=== PATIENT | male | born 1960 | race Caucasian/White ===

== ENCOUNTER 2017-10-31 09:21 | Outpatient (CLI) | payer MEDICAID ==
[2017-10-31 09:43] LABS: BASOPHILS % (AUTO) 0.7 %; EOSINOPHILS # (AUTO) 0.3 10^3/uL (0.0-0.7); EOSINOPHILS % (AUTO) 4.3 %; HGB - HEMOGLOBIN 13.1 g/dL (14.0-18.0); LYMPHOCYTES # (AUTO) 1.5 10^3/uL (1.5-3.5); LYMPHOCYTES % (AUTO) 22.2 %; MEAN CORPUSCULAR HEMOGLOBIN 30.8 pg (27.0-31.0); MEAN CORPUSCULAR HGB CONC 33.8 g/dL (32.0-36.0); MEAN CORPUSCULAR VOLUME 91.1 fL (80.0-94.0); MEAN PLATELET VOLUME 7.3 fL (7.4-11.4); MONOCYTES # (AUTO) 0.5 10^3/uL (0.0-1.0); MONOCYTES % (AUTO) 7.6 %; NEUTROPHILS # (AUTO) 4.5 10^3/uL (1.5-6.6); NEUTROPHILS % (AUTO) 65.2 %; PLT - PLATELET COUNT 199 10^3/uL (130-450); RED BLOOD COUNT 4.23 10^6/uL (4.70-6.10); WHITE BLOOD COUNT 6.9 x10^3/uL (4.8-10.8)
[2017-10-31 10:00] LABS: BUN - BLOOD UREA NITROGEN 22 mg/dL (6-20); CALCIUM 8.8 mg/dL (8.5-10.3); CARBON DIOXIDE - CO2 28 mmol/L (21-32); CHLORIDE 102 mmol/L (101-111); CHOL/HDL RATIO 4.1 (<5.0); CHOLESTEROL 124 mg/dL; CREATININE 1.1 mg/dL (0.6-1.2); GFR - MDRD 69 (>89); GLUCOSE 196 mg/dL (70-100); HDL CHOLESTEROL 30 mg/dL; LDL CHOLESTEROL,CALCULATED 54 mg/dL; LDL/HDL RATIO 1.8 (<3.6); SODIUM 137 mmol/L (135-145); VLDL CHOLESTEROL 40 mg/dL
== END 2017-10-31 09:22 | disposition home or self-care (01) ==
LOC: LAB 09:21
PROVIDERS: ATTEND Physician Assistant Medical
DX: Z00.00 Encounter for general adult medical examination without abnormal findings (principal); I48.2 Chronic atrial fibrillation; I10 Essential (primary) hypertension; G89.29 Other chronic pain
CPT/HCPCS: 36415; 80048; 80061; 83721; 83880; 84153; 84443; 85025

== ENCOUNTER 2018-04-01 11:16 | Outpatient (CLI) | payer MEDICAID ==
[2018-04-01 19:14] LABS: CALCIUM 9.3 mg/dL (8.5-10.3)
== END 2018-04-01 11:17 | disposition home or self-care (01) ==
LOC: LAB.N 11:16
PROVIDERS: ATTEND Physician Assistant Medical
DX: R94.4 Abnormal results of kidney function studies (principal)
CPT/HCPCS: 36415; 80048

== ENCOUNTER 2018-07-14 08:00 | Outpatient (CLI) | payer MEDICAID ==
[2018-07-14 13:04] LABS: BASOPHILS % (AUTO) 0.6 %; EOSINOPHILS # (AUTO) 0.2 10^3/uL (0.0-0.7); EOSINOPHILS % (AUTO) 3.4 %; HGB - HEMOGLOBIN 12.7 g/dL (14.0-18.0); LYMPHOCYTES # (AUTO) 1.5 10^3/uL (1.5-3.5); LYMPHOCYTES % (AUTO) 25.9 %; MEAN CORPUSCULAR HEMOGLOBIN 30.3 pg (27.0-31.0); MEAN CORPUSCULAR HGB CONC 33.5 g/dL (32.0-36.0); MEAN CORPUSCULAR VOLUME 90.5 fL (80.0-94.0); MEAN PLATELET VOLUME 8.2 fL (7.4-11.4); MONOCYTES # (AUTO) 0.4 10^3/uL (0.0-1.0); MONOCYTES % (AUTO) 7.9 %; NEUTROPHILS # (AUTO) 3.5 10^3/uL (1.5-6.6); NEUTROPHILS % (AUTO) 62.2 %; PLT - PLATELET COUNT 211 10^3/uL (130-450); RED BLOOD COUNT 4.18 10^6/uL (4.70-6.10); RED CELL DISTRIBUTION WIDTH 14.4 % (12.0-15.0); WHITE BLOOD COUNT 5.6 x10^3/uL (4.8-10.8)
[2018-07-14 13:09] LABS: CALCIUM 9.5 mg/dL (8.5-10.3)
== END 2018-07-14 23:59 | disposition home or self-care (01) ==
LOC: LAB.N 08:00
PROVIDERS: ATTEND Physician Assistant Medical
DX: R94.4 Abnormal results of kidney function studies (principal); R73.9 Hyperglycemia, unspecified; R60.0 Localized edema; I10 Essential (primary) hypertension
CPT/HCPCS: 36415; 80048; 85025

== ENCOUNTER 2018-07-28 08:00 | Outpatient (CLI) | payer MEDICAID | END 2018-07-28 23:59 | disposition home or self-care (01) | LOC: LAB.N 08:00 | PROVIDERS: ATTEND Physician Assistant Medical | DX: R60.0 Localized edema (principal) | CPT/HCPCS: 36415; 83880 ==

== ENCOUNTER 2018-07-29 09:27 | Outpatient (CLI) | payer MEDICAID | END 2018-07-29 09:28 | disposition home or self-care (01) | LOC: DI 09:27 | PROVIDERS: ATTEND Physician Assistant Medical | DX: R60.0 Localized edema (principal); I48.2 Chronic atrial fibrillation; I10 Essential (primary) hypertension; I27.20 Pulmonary hypertension, unspecified; I77.810 Thoracic aortic ectasia | CPT/HCPCS: 93306 ==

== ENCOUNTER 2018-09-15 08:00 | Outpatient (CLI) | payer MEDICAID | END 2018-09-15 23:59 | disposition home or self-care (01) | LOC: LAB.N 08:00 | PROVIDERS: ATTEND Physician Assistant Medical | DX: R60.0 Localized edema (principal) | CPT/HCPCS: 36415; 83880 ==

== ENCOUNTER 2018-09-20 05:27 | Outpatient (CLI) | payer MEDICAID | END 2018-09-20 05:28 | disposition critical access hospital (66) | LOC: EMS 05:27 | PROVIDERS: ATTEND Surgery | DX: R00.0 Tachycardia, unspecified (principal); R07.89 Other chest pain; R42 Dizziness and giddiness; R53.1 Weakness ==

== ENCOUNTER 2018-09-20 05:35 | Emergency (ER) | payer MEDICAID ==
--- NOTE | 2018-09-20 05:36 | ED Physician Documentation ---
PD HPI CHEST PAIN - Stated complaint Stated Complaint: CP, HEART RACING - History obtained from History obtained from: Patient - History of Present Illness Timing - onset: Today (this morning) Timing - onset during: Sleep Timing - details: Abrupt onset Pain level max: 4 Pain level now: 0 Quality: Pressure, Tightness Location: Substernal Improved by: Other (resolved with conversion to NSR (see below)) Associated symptoms: Palpitations. No: Shortness of air, Nausea, Vomiting Recently seen: Not recently seen - Additional information Additional information: BIBA. c/o sudden onset rapid palpitations that woke him from sleep this morning. He has had several similar episodes in the past which usually spontaneously resolve, but this episode did not resolve and was associated with chest tightness/pressure (which is atypical for his previous episodes). He has required medical intervention for some previous episodes, recalls being given some type of IV medication for heart rate of 210 which resolved the symptoms. He is not certain as to what previous diagnosis has been given to these symptoms for him. EMS found patient to be in ALISHA 160s but en route to ED patient converted to NSR with valsalva (directed to blow into open tip-end of a syringe) and this resulted in complete resolution of his symptoms. Was inpatient at few weeks ago, few day stay for ELVIN attributed to being on several different diuretics. Review of Systems Constitutional: reports: Reviewed and negative Cardiac: reports: Chest pain / pressure, Palpitations. denies: Pedal edema, Calf pain Respiratory: reports: Reviewed and negative GI: reports: Reviewed and negative Musculoskeletal: denies: Extremity swelling PD PAST MEDICAL HISTORY - Past Medical History Past Medical History: Yes Cardiovascular: Hypertension, High cholesterol Endocrine/Autoimmune: Type 2 diabetes - Present Medications Home Medications: Ambulatory Orders Medication Instructions Recorded Confirmed Atorvastatin Calcium 40 mg PO DAILY 09/20/18 09/20/18 Carvedilol 25 mg PO BID 09/20/18 09/20/18 Gabapentin 600 mg PO Q4H PRN 09/20/18 09/20/18 Insulin Glargine [Lantus Solostar] 20 unit SQ QPM 09/20/18 09/20/18 Lisinopril 40 mg PO DAILY 09/20/18 09/20/18 Metformin HCl 500 mg PO BID 09/20/18 09/20/18 traMADol [Ultram] 50 mg PO BID PRN 09/20/18 09/20/18 - Allergies Allergies/Adverse Reactions: Allergies Allergy/AdvReac Type Severity Reaction Status Date / Time codeine Allergy Hallucinati Verified 09/20/18 05:44 ons PD ED PE NORMAL - Vitals Vital signs reviewed: Yes - General General: Alert and oriented X 3, No acute distress, Well developed/nourished - HEENT HEENT: Moist mucous membranes - Neck Neck: Supple, no meningeal sign, No JVD - Cardiac Cardiac: RRR, No murmur, No gallop, No rub - Respiratory Respiratory: No respiratory distress, Clear bilaterally - Abdomen Abdomen: Soft, Non tender, Non distended - Derm Derm: Normal color, Warm and dry - Extremities Extremities: No edema Results - Vitals Vitals: Oxygen O2 Source Room air - EKG (time done) No standard instances Rate: Rate (enter#) (89) Rhythm: NSR [place]: LAD Intervals: Wide QRS (IVCD), RBBB (atypical) QRS: Normal Ischemia: Normal ST segments Compare to prior EKG: Old EKG unavailable - Labs Labs: Laboratory Tests 09/20/18 09/20/18 09/20/18 06:10 06:10 06:10 WBC 7.1 RBC 3.73 L Hgb 11.6 L Hct 33.6 L MCV 90.2 MCH 31.2 H MCHC 34.6 RDW 13.5 Plt Count 210 MPV 7.3 L Neut # (Auto) 4.5 Lymph # (Auto) 1.8 [place] # (Auto) 0.6 Eos # (Auto) 0.2 Baso # (Auto) 0.1 Absolute Nucleated RBC 0.00 Nucleated RBC % 0.0 Sodium 136 Potassium 4.1 Chloride 98 L Carbon Dioxide 26 Anion Gap 12.0 BUN 60 H Creatinine 1.7 H Estimated GFR (MDRD) 42 L Glucose 225 H Calcium 8.8 Troponin I < 0.04 PD MEDICAL DECISION MAKING - ED course Complexity details: reviewed old records (records from recent inpatient stay at were faxed and reviewed; they indicate CXR was performed at that time 08/29, and was unremarkable. On tonight's exam, lungs are CTA and he has no pulmonary c/o, and thus imaging not performed at this time), reviewed results, re- evaluated patient, considered differential, d/w patient ED course: remained in NSR during ED stay and was asymptomatic during this period of obs ervation. Abnormal test results discussed and instructed to f/u with PMD regarding these results, particularly the bun / creatinine (which are increased compared to d/c from [facility] few weeks ago) Departure - Departure Disposition: 01 Home, Self Care Clinical Impression: PAF (paroxysmal atrial fibrillation) Condition: Good Instructions: ED Afib Comments: Your kidney tests were elevated today as follows: BUN: 60 Creatinine: 1.7 You should contact your doctor's office tomorrow to let them know of these results so they can compare them to the recent blood work they performed. They can then advise you regarding the timing of follow-up (keeping your upcoming appointment or changing to an earlier appointment if they so recommend) Discharge Date/Time: 09/20/18 07:13
[2018-09-20 06:20] LABS: BASOPHILS # (AUTO) 0.1 10^3/uL (0.0-0.1); BASOPHILS % (AUTO) 0.7 %; EOSINOPHILS # (AUTO) 0.2 10^3/uL (0.0-0.7); EOSINOPHILS % (AUTO) 2.9 %; HGB - HEMOGLOBIN 11.6 g/dL (14.0-18.0); LYMPHOCYTES # (AUTO) 1.8 10^3/uL (1.5-3.5); MEAN CORPUSCULAR HEMOGLOBIN 31.2 pg (27.0-31.0); MEAN CORPUSCULAR HGB CONC 34.6 g/dL (32.0-36.0); MEAN CORPUSCULAR VOLUME 90.2 fL (80.0-94.0); MEAN PLATELET VOLUME 7.3 fL (7.4-11.4); MONOCYTES # (AUTO) 0.6 10^3/uL (0.0-1.0); MONOCYTES % (AUTO) 8.5 %; NEUTROPHILS # (AUTO) 4.5 10^3/uL (1.5-6.6); NEUTROPHILS % (AUTO) 62.9 %; PLT - PLATELET COUNT 210 10^3/uL (130-450); RED BLOOD COUNT 3.73 10^6/uL (4.70-6.10); RED CELL DISTRIBUTION WIDTH 13.5 % (12.0-15.0); WHITE BLOOD COUNT 7.1 x10^3/uL (4.8-10.8)
[2018-09-20 06:28] LABS: CALCIUM 8.8 mg/dL (8.5-10.3); CREATININE 1.7 mg/dL (0.6-1.2)
[2018-09-20 07:20] VITALS: BP 143/77
== END 2018-09-20 07:13 | disposition home or self-care (01) ==
LOC: EDUNIT# → ED 05:35
DX: I48.0 Paroxysmal atrial fibrillation (principal); I10 Essential (primary) hypertension; E11.9 Type 2 diabetes mellitus without complications; Z79.4 Long term (current) use of insulin
CPT/HCPCS: 36415; 80048; 84484; 85025; 93005; 99283; 99284

== ENCOUNTER 2019-02-24 09:13 | Outpatient (CLI) | payer MEDICAID ==
[2019-02-24 12:38] LABS: CALCIUM 9.2 mg/dL (8.5-10.3); CREATININE 1.1 mg/dL (0.6-1.2); URIC ACID 7.7 mg/dL (2.6-7.2)
== END 2019-02-24 23:59 | disposition home or self-care (01) ==
LOC: LAB.N 09:13
PROVIDERS: ATTEND Physician Assistant Medical
DX: M79.646 Pain in unspecified finger(s) (principal); I10 Essential (primary) hypertension
CPT/HCPCS: 36415; 80048; 84550

== ENCOUNTER 2019-04-20 16:51 | Outpatient (CLI) | payer MEDICAID | END 2019-04-20 16:52 | disposition home or self-care (01) | LOC: LAB 16:51 | PROVIDERS: ATTEND Physician Assistant Medical | DX: Z53.9 Procedure and treatment not carried out, unspecified reason (principal) ==

== ENCOUNTER 2019-04-20 16:57 | Outpatient (CLI) | payer MEDICAID ==
[2019-04-20 17:27] LABS: HEMOGLOBIN A1C 0.83 g/dL; HEMOGLOBIN A1C % 7.6 % (4.6-6.2)
== END 2019-04-20 23:59 | disposition home or self-care (01) ==
LOC: LAB.R 16:57
PROVIDERS: ATTEND Physician Assistant Medical
DX: E11.65 Type 2 diabetes mellitus with hyperglycemia (principal)
CPT/HCPCS: 83036

== ENCOUNTER 2019-10-06 09:17 | Outpatient (CLI) | payer MEDICAID ==
[2019-10-06 10:06] LABS: BUN - BLOOD UREA NITROGEN 28 mg/dL (6-20); CALCIUM 8.9 mg/dL (8.5-10.3); CARBON DIOXIDE - CO2 28 mmol/L (21-32); CHLORIDE 97 mmol/L (101-111); CHOL/HDL RATIO 3.9 (<5.0); CHOLESTEROL 129 mg/dL; CREATININE 1.1 mg/dL (0.6-1.2); GLUCOSE 146 mg/dL (70-100); HDL CHOLESTEROL 33 mg/dL; LDL CHOLESTEROL,CALCULATED 57 mg/dL; LDL/HDL RATIO 1.7 (<3.6); SODIUM 135 mmol/L (135-145); VLDL CHOLESTEROL 39 mg/dL
[2019-10-06 10:16] LABS: HB2 TOTAL 14.4 g/dL; HEMOGLOBIN A1C 0.8 g/dL; HEMOGLOBIN A1C % 7.2 % (4.6-6.2)
[2019-10-06 11:00] LABS: MICROALBUMIN,URINE 0.9 mg/dL (0-300.0)
== END 2019-10-06 09:18 | disposition home or self-care (01) ==
LOC: LAB 09:17
PROVIDERS: ATTEND Family Medicine
DX: E11.65 Type 2 diabetes mellitus with hyperglycemia (principal); E78.5 Hyperlipidemia, unspecified
CPT/HCPCS: 36415; 80048; 80061; 82043; 82570; 83036; 83721; 84443

== ENCOUNTER 2020-04-12 12:59 | Outpatient (CLI) | payer MEDICAID | END 2020-04-12 13:00 | disposition home or self-care (01) | LOC: COV 12:59 | PROVIDERS: ATTEND Nurse Practitioner | DX: Z20.828 Contact with and (suspected) exposure to other viral communicable diseases (principal) ==

== ENCOUNTER 2020-07-05 08:35 | Outpatient (CLI) | payer MEDICAID ==
[2020-07-05 09:02] LABS: BASOPHILS % (AUTO) 0.6 %; EOSINOPHILS # (AUTO) 0.3 10^3/uL (0.0-0.7); EOSINOPHILS % (AUTO) 4.4 %; HCT - HEMATOCRIT 45.5 % (42.0-52.0); HGB - HEMOGLOBIN 14.9 g/dL (14.0-18.0); LYMPHOCYTES # (AUTO) 1.9 10^3/uL (1.5-3.5); LYMPHOCYTES % (AUTO) 26.9 %; MEAN CORPUSCULAR HEMOGLOBIN 29.3 pg (27.0-31.0); MEAN CORPUSCULAR HGB CONC 32.7 g/dL (32.0-36.0); MEAN CORPUSCULAR VOLUME 89.4 fL (80.0-94.0); MEAN PLATELET VOLUME 9.1 fL (7.4-11.4); MONOCYTES # (AUTO) 0.6 10^3/uL (0.0-1.0); MONOCYTES % (AUTO) 8.9 %; NEUTROPHILS # (AUTO) 4.1 10^3/uL (1.5-6.6); NEUTROPHILS % (AUTO) 58.9 %; PLT - PLATELET COUNT 199 10^3/uL (130-450); RED BLOOD COUNT 5.09 10^6/uL (4.70-6.10); RED CELL DISTRIBUTION WIDTH 14.1 % (12.0-15.0); WHITE BLOOD COUNT 6.9 x10^3/uL (4.8-10.8)
[2020-07-05 09:20] LABS: ALBUMIN 4.2 g/dL (3.2-5.5); ALBUMIN/GLOBULIN RATIO 1.1 (1.0-2.2); ALKALINE PHOSPHATASE 89 IU/L (42-121); ALT ALANINE AMINOTRANSFERASE 24 IU/L (10-60); AST ASPARTATE AMINOTRANSFERASE 19 IU/L (10-42); BILIRUBIN,TOTAL 0.6 mg/dL (0.2-1.0); BUN - BLOOD UREA NITROGEN 16 mg/dL (6-20); CALCIUM 9.5 mg/dL (8.5-10.3); CARBON DIOXIDE - CO2 27 mmol/L (21-32); CHLORIDE 101 mmol/L (101-111); CHOL/HDL RATIO 6.2 (<5.0); CHOLESTEROL 206 mg/dL; CREATININE 0.9 mg/dL (0.6-1.2); GFR - MDRD 86 (>89); GLUCOSE 167 mg/dL (70-100); HDL CHOLESTEROL 33 mg/dL; LDL CHOLESTEROL,CALCULATED 105 mg/dL; LDL/HDL RATIO 3.2 (<3.6); POTASSIUM 3.9 mmol/L (3.5-5.0); SODIUM 138 mmol/L (135-145); TRIGLYCERIDES 340 mg/dL; URIC ACID 6.4 mg/dL (2.6-7.2); VLDL CHOLESTEROL 68 mg/dL
[2020-07-05 12:53] LABS: ESTIMATED AVERAGE GLUCOSE 154 mg/dL (70-100)
== END 2020-07-05 08:36 | disposition home or self-care (01) ==
LOC: LAB 08:35
PROVIDERS: ATTEND Internal Medicine
DX: I10 Essential (primary) hypertension (principal); E11.8 Type 2 diabetes mellitus with unspecified complications; E78.5 Hyperlipidemia, unspecified; Z12.5 Encounter for screening for malignant neoplasm of prostate; M10.9 Gout, unspecified
CPT/HCPCS: 36415; 80053; 80061; 83036; 83721; 84153; 84550; 85025

== ENCOUNTER 2020-09-18 08:00 | Outpatient (CLI) | payer MEDICAID ==
--- NOTE | 2020-09-18 15:02 | XRAY Report ---
PROCEDURE: Lumbar Spine 2 View INDICATIONS: LOW BACK PX TECHNIQUE: 3 views of the lumbar spine were acquired. COMPARISON: X-ray pelvis 517 1 FINDINGS: Bones: 5 [id number] vertebrae are present. There is grade 1 retrolisthesis of L1 on L2, L2 on L3, on the greatest measuring 6 mm of L1 on L2. There is grade 1/2 anterolisthesis of L4 on L5 measur ing approximately 1.6 cm. Severe disc and foraminal narrowing is noted T12-L1, L3-4, L4-5, L5-S1. The re is moderate to severe foraminal narrowing at L1-L2, L2-3. Prominent bridging anterior osteophytes are noted at T12-L1 and to a lesser degree L3-4 and L4-5. No vertebral body compression fractures. N o suspicious bony lesions. Left hip arthroplasty is partially visualized. Hardware appears intact. Soft tissues: Overlying bowel gas pattern is normal. No suspicious soft tissue calcifications. IMPRESSION: 1. Prominent multilevel degenerative changes including multilevel foraminal narrowing from L3-4 throu gh L5-S1. As clinically indicated for further evaluation of foraminal compromise or nerve root compre ssion, MRI is recommended. Reviewed by: Jessie Gusman MD on 09/18/2020 3:01 PM PDT Approved by: Jessie Gusman MD on 09/18/2020 3:01 PM PDT Station ID: [id number]
--- NOTE | 2020-09-18 15:04 | XRAY Report ---
PROCEDURE: Pelvis 1 View INDICATIONS: LOW BACK PX TECHNIQUE: Single view of the pelvis was obtained. COMPARISON: X-ray lumbar spine 09/18/2020 FINDINGS: No visualized fractures or dislocations. Moderate degenerative hip joint space narrowing is noted on the right. Minimal periarticular osteophytes are present. Partially visualized left femoral arthropla sty is present. No gross hardware fracture. IMPRESSION: Arthritic narrowing within the right hip as above. Reviewed by: Jessie Gusman MD on 09/18/2020 3:02 PM PDT Approved by: Jessie Gusman MD on 09/18/2020 3:02 PM PDT Station ID: [id number]
== END 2020-09-18 23:59 | disposition home or self-care (01) ==
LOC: DI.N 08:00
PROVIDERS: ATTEND Nurse Practitioner
DX: M43.16 Spondylolisthesis, lumbar region (principal); M48.061 Spinal stenosis, lumbar region without neurogenic claudication; M48.07 Spinal stenosis, lumbosacral region; M16.11 Unilateral primary osteoarthritis, right hip

== ENCOUNTER 2020-10-16 15:49 | Outpatient (CLI) | payer MEDICAID ==
--- NOTE | 2020-10-16 14:30 | XRAY Report ---
PROCEDURE: Knee 4 View RT INDICATIONS: ARTHRITIS, R KNEE TECHNIQUE: 4 views of the right knee(s) were acquired. COMPARISON: X-ray knee 06/23/2018 FINDINGS: Bones: No fractures or dislocations. No suspicious bony lesions. Left knee arthroplasty is present . There is severe tricompartmental arthritic narrowing, most severe medially. Mild lateral patellar s ubluxation is present. Prominent periarticular osteophytes and subchondral sclerosis are present. Min imal interval progression is noted. Soft tissues: Mild joint effusion. No suspicious soft tissue calcifications. IMPRESSION: Severe tricompartmental narrowing consistent with arthritis. Reviewed by: Jessie Gusman MD on 10/16/2020 2:28 PM PDT Approved by: Jessie Gusman MD on 10/16/2020 2:28 PM PDT Station ID: [id number]
== END 2020-10-16 23:59 | disposition home or self-care (01) ==
LOC: DI.N 15:49
PROVIDERS: ATTEND Orthopaedic Surgery
DX: M13.861 Other specified arthritis, right knee (principal)

== ENCOUNTER 2021-07-11 08:46 | Outpatient (CLI) | payer MEDICAID ==
[2021-07-11 09:14] LABS: BASOPHILS % (AUTO) 0.6 %; EOSINOPHILS # (AUTO) 0.3 10^3/uL (0.0-0.7); EOSINOPHILS % (AUTO) 3.6 %; HCT - HEMATOCRIT 44.3 % (42.0-52.0); HGB - HEMOGLOBIN 15.2 g/dL (14.0-18.0); LYMPHOCYTES # (AUTO) 2.1 10^3/uL (1.5-3.5); MEAN CORPUSCULAR HEMOGLOBIN 30.4 pg (27.0-31.0); MEAN CORPUSCULAR HGB CONC 34.3 g/dL (32.0-36.0); MEAN CORPUSCULAR VOLUME 88.6 fL (80.0-94.0); MEAN PLATELET VOLUME 9.4 fL (7.4-11.4); MONOCYTES # (AUTO) 0.5 10^3/uL (0.0-1.0); MONOCYTES % (AUTO) 7.6 %; NEUTROPHILS # (AUTO) 4.2 10^3/uL (1.5-6.6); NEUTROPHILS % (AUTO) 58.9 %; PLT - PLATELET COUNT 207 10^3/uL (130-450); WHITE BLOOD COUNT 7.1 x10^3/uL (4.8-10.8)
[2021-07-11 09:31] LABS: ALBUMIN 4.1 g/dL (3.2-5.5); ALBUMIN/GLOBULIN RATIO 1.1 (1.0-2.2); ALKALINE PHOSPHATASE 84 IU/L (42-121); ALT ALANINE AMINOTRANSFERASE 21 IU/L (10-60); AST ASPARTATE AMINOTRANSFERASE 15 IU/L (10-42); BILIRUBIN,TOTAL 0.7 mg/dL (0.2-1.0); BUN - BLOOD UREA NITROGEN 19 mg/dL (6-20); CALCIUM 8.8 mg/dL (8.5-10.3); CARBON DIOXIDE - CO2 25 mmol/L (21-32); CHLORIDE 98 mmol/L (101-111); CHOLESTEROL 204 mg/dL; GFR - MDRD 76 (>89); GLUCOSE 192 mg/dL (70-100); HDL CHOLESTEROL 34 mg/dL; LDL CHOLESTEROL,CALCULATED 96 mg/dL; LDL/HDL RATIO 2.8 (<3.6); SODIUM 134 mmol/L (135-145); TOTAL PROTEIN 7.7 g/dL (6.7-8.2); TRIGLYCERIDES 372 mg/dL; VLDL CHOLESTEROL 74 mg/dL
[2021-07-11 12:56] LABS: ESTIMATED AVERAGE GLUCOSE 183 mg/dL (70-100)
== END 2021-07-11 08:47 | disposition home or self-care (01) ==
LOC: LAB 08:46
PROVIDERS: ATTEND Internal Medicine
DX: I10 Essential (primary) hypertension (principal); E11.8 Type 2 diabetes mellitus with unspecified complications
CPT/HCPCS: 36415; 80053; 80061; 83036; 83721; 85025

== ENCOUNTER 2022-07-17 08:57 | Outpatient (CLI) | payer MEDICAID ==
[2022-07-17 09:21] LABS: BASOPHILS # (AUTO) 0.1 10^3/uL (0.0-0.1); BASOPHILS % (AUTO) 0.5 %; EOSINOPHILS # (AUTO) 0.3 10^3/uL (0.0-0.7); HCT - HEMATOCRIT 44.9 % (42.0-52.0); LYMPHOCYTES # (AUTO) 2.6 10^3/uL (1.5-3.5); LYMPHOCYTES % (AUTO) 28.7 %; MEAN CORPUSCULAR HEMOGLOBIN 29.3 pg (27.0-31.0); MEAN CORPUSCULAR HGB CONC 33.4 g/dL (32.0-36.0); MEAN CORPUSCULAR VOLUME 87.7 fL (80.0-94.0); MEAN PLATELET VOLUME 9.3 fL (7.4-11.4); MONOCYTES # (AUTO) 0.7 10^3/uL (0.0-1.0); NEUTROPHILS # (AUTO) 5.4 10^3/uL (1.5-6.6); NEUTROPHILS % (AUTO) 59.5 %; PLT - PLATELET COUNT 220 10^3/uL (130-450); RED BLOOD COUNT 5.12 10^6/uL (4.70-6.10); RED CELL DISTRIBUTION WIDTH 13.9 % (12.0-15.0); WHITE BLOOD COUNT 9.1 x10^3/uL (4.8-10.8)
[2022-07-17 09:39] LABS: ALBUMIN 4.1 g/dL (3.2-5.5); ALBUMIN/GLOBULIN RATIO 1.1 (1.0-2.2); ALKALINE PHOSPHATASE 77 IU/L (42-121); ALT ALANINE AMINOTRANSFERASE 22 IU/L (10-60); AST ASPARTATE AMINOTRANSFERASE 16 IU/L (10-42); BILIRUBIN,TOTAL 0.5 mg/dL (0.2-1.0); BUN - BLOOD UREA NITROGEN 18 mg/dL (6-20); CARBON DIOXIDE - CO2 27 mmol/L (21-32); CHLORIDE 101 mmol/L (101-111); CHOL/HDL RATIO 6.8 (<5.0); CHOLESTEROL 212 mg/dL; GFR - MDRD 76 (>89); GLUCOSE 182 mg/dL (70-100); HDL CHOLESTEROL 31 mg/dL; LDL CHOLESTEROL,CALCULATED 102 mg/dL; LDL/HDL RATIO 3.3 (<3.6); POTASSIUM 4.2 mmol/L (3.5-5.0); SODIUM 138 mmol/L (135-145); TOTAL PROTEIN 7.9 g/dL (6.7-8.2); TRIGLYCERIDES 393 mg/dL; VLDL CHOLESTEROL 79 mg/dL
[2022-07-17 11:31] LABS: ESTIMATED AVERAGE GLUCOSE 177 mg/dL (70-100); HEMOGLOBIN A1c% 7.8 % (4.27-6.07)
== END 2022-07-17 08:58 | disposition home or self-care (01) ==
LOC: LAB 08:57
PROVIDERS: ATTEND Registered Nurse
DX: E78.5 Hyperlipidemia, unspecified (principal); Z79.899 Other long term (current) drug therapy; Z12.5 Encounter for screening for malignant neoplasm of prostate; E11.8 Type 2 diabetes mellitus with unspecified complications
CPT/HCPCS: 36415; 80053; 80061; 82043; 82570; 83036; 83721; 84153; 85025

== ENCOUNTER 2022-07-18 09:06 | Outpatient (CLI) | payer MEDICAID ==
[2022-07-18 09:24] LABS: CREATININE,URINE 84.1 mg/dL; MICROALBUM/CREATININE RATIO,UR 10.7 ug/mg (<30.0); MICROALBUMIN,URINE 0.9 mg/dL (0-300.0)
== END 2022-07-18 09:07 | disposition home or self-care (01) ==
LOC: LAB.R 09:06
PROVIDERS: ATTEND Registered Nurse
DX: E11.8 Type 2 diabetes mellitus with unspecified complications (principal)
CPT/HCPCS: 82043; 82570

== ENCOUNTER 2022-07-26 12:34 | Outpatient (CLI) | payer MEDICAID ==
--- NOTE | 2022-07-26 15:37 | XRAY Report ---
PROCEDURE: Knee 2 View RT INDICATIONS: ARTHRITIS,RIGHT KNEE TECHNIQUE: 2 views of the right knee(s) were acquired. COMPARISON: None. FINDINGS: Bones: Tricompartment joint space narrowing with associated osteophytosis, subchondral sclerosis, jacob ny deformity. Medial subluxation of the femur relative to the tibial plateau. Soft tissues: Moderate joint effusion. No suspicious soft tissue calcifications. IMPRESSION: Severe tricompartment osteoarthritis. Reviewed by: Alfonso Valle on 07/26/2022 3:36 PM PDT Approved by: Alfonso Valle on 07/26/2022 3:36 PM PDT Station ID: [id number]
== END 2022-07-26 12:35 | disposition home or self-care (01) ==
LOC: DI 12:34
PROVIDERS: ATTEND Registered Nurse
DX: M17.11 Unilateral primary osteoarthritis, right knee (principal)

== ENCOUNTER 2022-08-26 15:43 | Outpatient (CLI) | payer MEDICAID ==
--- NOTE | 2022-08-26 14:38 | XRAY Report ---
PROCEDURE: Knee 3 View RT INDICATIONS: RIGHT KNEE PAIN TECHNIQUE: 3 views of the right knee(s) were acquired. COMPARISON: X-ray knee 10/16/2020 FINDINGS: Bones: No fractures or dislocations. No suspicious bony lesions. There remains severe tricompartm ental arthritic change on the right. Significant periarticular osteophytes are present as well as sub chondral sclerosis. No definitive erosions. Left knee arthroplasty is present. Hardware is intact wit hout evidence of hardware fracture or periprosthetic lucency to suggest loosening. Soft tissues: No knee joint effusion. No suspicious soft tissue calcifications or masses. IMPRESSION: Severe tricompartmental arthritic change within the right knee as above. Reviewed by: Jessie Gusman MD on 08/26/2022 2:36 PM PDT Approved by: Jessie Gusman MD on 08/26/2022 2:36 PM PDT Station ID: [id number]
== END 2022-08-26 15:45 | disposition home or self-care (01) ==
LOC: DI.WOS 15:43
PROVIDERS: ATTEND Physician Assistant Surgical
DX: M17.11 Unilateral primary osteoarthritis, right knee (principal)

== ENCOUNTER 2022-08-27 23:38 | Outpatient (CLI) | payer MEDICAID | END 2022-08-27 23:39 | disposition critical access hospital (66) | LOC: EMS 23:38 | DX: R07.9 Chest pain, unspecified (principal); I47.1 Supraventricular tachycardia; E10.65 Type 1 diabetes mellitus with hyperglycemia; R61 Generalized hyperhidrosis; R51.9 Headache, unspecified | CPT/HCPCS: A0425; A0427; A0999 ==

== ENCOUNTER 2022-08-27 23:53 | Emergency (ER) | payer MEDICAID ==
[2022-08-28] MEDS ORDERED: SODIUM CHLORIDE 0.9% 1,000 ML IV STA (00:12)
--- NOTE | 2022-08-28 00:14 | ED Physician Documentation ---
History of Present Illness - Stated complaint Stated Complaint: HIGH GLUCOSE - Chief complaint Chief Complaint: General - History obtained from History obtained from: Patient, EMS - Additonal information Additional information: 62-year-old man with history of junctional tachycardia and atrial fibrillation presents with chest pain from home, sudden onset, a/w fluttering in the chest, constant, mild, remitting in the ED. Also brought in by EMS for hyperglycemia. Patient did have steroid injections earlier today as well. denies cough, fever, soa, nausea. PD PAST MEDICAL HISTORY - Past Medical History Past Medical History: Yes Cardiovascular: Hypertension, High cholesterol Respiratory: None Neuro: None Endocrine/Autoimmune: Type 2 diabetes GI: None : None HEENT: None Psych: None Musculoskeletal: Chronic back pain Derm: None - Past Surgical History Past Surgical History: Yes Ortho: Hip replacement, Knee replacement, Shoulder arthroplasty, Spine surgery - Present Medications Home Medications: Ambulatory Orders Medication Instructions Recorded Confirmed Atorvastatin Calcium 20 mg PO DAILY 09/20/18 09/20/18 Gabapentin 600 mg PO Q4H PRN 09/20/18 08/28/22 Insulin Glargine [Lantus Solostar] 25 unit SQ QPM 09/20/18 08/28/22 Metformin HCl 500 mg PO BID 09/20/18 08/28/22 carvediloL [Carvedilol] 25 mg PO BID 09/20/18 08/28/22 lisinopriL [Lisinopril] 40 mg PO DAILY 09/20/18 08/28/22 traMADol [Ultram] 50 mg PO BID PRN 09/20/18 08/28/22 Amlodipine Besylate [Norvasc] 2.5 mg PO DAILY 08/28/22 08/28/22 allopurinoL [Zyloprim] 100 mg PO DAILY 08/28/22 08/28/22 - Allergies Allergies/Adverse Reactions: Allergies Allergy/AdvReac Type Severity Reaction Status Date / Time codeine Allergy Hallucinati Verified 08/28/22 00:04 ons - Social History Does the pt smoke?: No Smoking Status: Never smoker Does the pt drink ETOH?: Yes Does the pt have substance abuse?: No - Immunizations Immunizations are current?: No Immunizations: TDAP >10years/unknown - POLST Patient has POLST: No PD ED PE NORMAL - Vitals Vital signs reviewed: Yes - General General: Alert and oriented X 3, No acute distress, Well developed/nourished - HEENT HEENT: Atraumatic, PERRL, EOMI - Neck Neck: Supple, no meningeal sign - Cardiac Cardiac: Other (tachycardic rate, regular rhythm) - Respiratory Respiratory: No respiratory distress, Clear bilaterally Results - Vitals Vitals: Vital Signs - 24 hr 08/28/22 08/28/22 08/28/22 00:02 00:07 01:00 Temperature 36.6 C Heart Rate 147 H 144 H 141 H Respiratory 21 19 19 Rate Blood Pressure 158/123 H 128/79 O2 Saturation 98 95 95 08/28/22 08/28/22 08/28/22 01:42 02:00 02:30 Temperature Heart Rate 93 92 94 Respiratory 18 16 18 Rate Blood Pressure 126/64 106/74 127/76 O2 Saturation 95 97 95 Oxygen O2 Source Room air - Labs Labs: Laboratory Tests 08/28/22 08/28/22 08/28/22 00:28 00:28 00:28 WBC 10.0 RBC 4.88 Hgb 14.5 Hct 42.9 MCV 87.9 MCH 29.7 MCHC 33.8 RDW 13.5 Plt Count 203 MPV 9.7 Neut # (Auto) 8.5 H Lymph # (Auto) 1.1 L [place] # (Auto) 0.4 Eos # (Auto) 0.0 Baso # (Auto) 0.0 Absolute Nucleated RBC 0.00 Nucleated RBC % 0.0 Sodium 140 Potassium 4.3 Chloride 104 Carbon Dioxide 23 Anion Gap 13.0 BUN 23 H Creatinine 1.1 Estimated GFR (MDRD) 68 L Glucose 360 H POC Whole Bld Glucose Calcium 9.1 Total Bilirubin 0.5 AST 24 ALT 25 Alkaline Phosphatase 102 Troponin I High Sens 14.5 Total Protein 7.9 Albumin 4.2 Globulin 3.7 Albumin/Globulin Ratio 1.1 Lipase 39 08/28/22 08/28/22 00:37 02:37 WBC RBC Hgb Hct MCV MCH MCHC RDW Plt Count MPV Neut # (Auto) Lymph # (Auto) [place] # (Auto) Eos # (Auto) Baso # (Auto) Absolute Nucleated RBC Nucleated RBC % Sodium Potassium Chloride Carbon Dioxide Anion Gap BUN Creatinine Estimated GFR (MDRD) Glucose POC Whole Bld Glucose 306 H 293 H Calcium Total Bilirubin AST ALT Alkaline Phosphatase Troponin I High Sens Total Protein Albumin Globulin Albumin/Globulin Ratio Lipase PD Medical Decision Making - ED course ED course: 62-year-old man with history of junctional tachycardia and atrial fibrillation presents with chest pain from home, brought in by EMS for hyperglycemia. Patient did have steroid injections earlier today as well. Patient is tachycardic upon arrival 146 on EKG and it looks like normal sinus rhythm. IV 5mg metoprolol provided with resolution of tachycardia. Plan to obtain CBC, abdominal panel, chest x-ray, keep him on the hospital monitor and provide IV fluids for tachycardia.Will follow results. Labwork noncontributory. He does have some hyperglycemia that can be explained by the steroid injections. Advised pcp f/u. return precautions given. Departure - Departure Disposition: 01 Home, Self Care Clinical Impression: Hyperglycemia, Palpitations Condition: Good Instructions: Hyperglycemia Comments: You are seen in the emergency department for medical evaluation after having some chest pain and high blood sugar.You did have a high heart rate initially when you came in that went back to normal with a small dose of IV metoprolol. Your blood work uncovered no emergent cause for your symptoms. You should follow-up with your primary care provider. Return to the emergency department for new or worsening symptoms or other concerns
[2022-08-28 00:35] LABS: BASOPHILS % (AUTO) 0.1 %; HCT - HEMATOCRIT 42.9 % (42.0-52.0); HGB - HEMOGLOBIN 14.5 g/dL (14.0-18.0); LYMPHOCYTES # (AUTO) 1.1 10^3/uL (1.5-3.5); LYMPHOCYTES % (AUTO) 11.3 %; MEAN CORPUSCULAR HEMOGLOBIN 29.7 pg (27.0-31.0); MEAN CORPUSCULAR HGB CONC 33.8 g/dL (32.0-36.0); MEAN CORPUSCULAR VOLUME 87.9 fL (80.0-94.0); MEAN PLATELET VOLUME 9.7 fL (7.4-11.4); MONOCYTES # (AUTO) 0.4 10^3/uL (0.0-1.0); MONOCYTES % (AUTO) 3.5 %; NEUTROPHILS # (AUTO) 8.5 10^3/uL (1.5-6.6); NEUTROPHILS % (AUTO) 84.9 %; PLT - PLATELET COUNT 203 10^3/uL (130-450); RED BLOOD COUNT 4.88 10^6/uL (4.70-6.10); RED CELL DISTRIBUTION WIDTH 13.5 % (12.0-15.0)
--- NOTE | 2022-08-28 00:47 | XRAY Report ---
PROCEDURE: Chest 1 View X-Ray INDICATIONS: Chest Pain TECHNIQUE: One view of the chest was acquired. COMPARISON: None. FINDINGS: Surgical changes and devices: None. Lungs and pleura: No pleural effusions or pneumothorax. Lungs are clear. Mediastinum: Mediastinal contours appear normal. Heart size is normal. Bones and chest wall: No suspicious bony lesions. Overlying soft tissues appear unremarkable. IMPRESSION: 1. No acute cardiopulmonary disease. Reviewed by: Dick Bingham MD on 08/28/2022 12:45 AM PDT Approved by: Dick Bingham MD on 08/28/2022 12:45 AM PDT Station ID: [id number]
[2022-08-28 00:50] LABS: ALBUMIN 4.2 g/dL (3.2-5.5); ALBUMIN/GLOBULIN RATIO 1.1 (1.0-2.2); BILIRUBIN,TOTAL 0.5 mg/dL (0.2-1.0); CALCIUM 9.1 mg/dL (8.5-10.3); CREATININE 1.1 mg/dL (0.6-1.2); POTASSIUM 4.3 mmol/L (3.5-5.0); TOTAL PROTEIN 7.9 g/dL (6.7-8.2)
[2022-08-28] MEDS ORDERED: METOPROLOL 5 MG/5 ML VIAL IVP STA (01:00)
[2022-08-28 03:26] VITALS: BP 135/75
== END 2022-08-28 03:26 | disposition home or self-care (01) ==
LOC: EDUNIT# → ED 23:53
DX: R00.2 Palpitations (principal); E11.65 Type 2 diabetes mellitus with hyperglycemia; I10 Essential (primary) hypertension; E78.00 Pure hypercholesterolemia, unspecified; Z79.84 Long term (current) use of oral hypoglycemic drugs; Z79.4 Long term (current) use of insulin; Z79.899 Other long term (current) drug therapy
CPT/HCPCS: 36415; 80053; 83690; 84484; 85025; 93005; 96361; 96374; 99284

== ENCOUNTER 2023-05-14 14:20 | Outpatient (CLI) | payer MEDICAID ==
[2023-05-14 14:51] LABS: BUN - BLOOD UREA NITROGEN 17 mg/dL (6-20); CALCIUM 9.6 mg/dL (8.5-10.3); CARBON DIOXIDE - CO2 33 mmol/L (21-32); CHLORIDE 102 mmol/L (101-111); CHOL/HDL RATIO 3.8 (<5.0); CHOLESTEROL 129 mg/dL; CREATININE 0.8 mg/dL (0.6-1.3); GFR - MDRD 98 (>89); GLUCOSE 130 mg/dL (74-104); HDL CHOLESTEROL 34 mg/dL; LDL CHOLESTEROL,CALCULATED 31 mg/dL; LDL/HDL RATIO 0.9 (<3.6); POTASSIUM 4.5 mmol/L (3.5-4.5); SODIUM 140 mmol/L (135-145); TRIGLYCERIDES 322 mg/dL (48-352); VLDL CHOLESTEROL 64 mg/dL
[2023-05-14 16:20] LABS: CREATININE,URINE 145.4 mg/dL; MICROALBUMIN,URINE 4.8 mg/dL
[2023-05-14 21:24] LABS: ESTIMATED AVERAGE GLUCOSE 180 mg/dL (70-100); HEMOGLOBIN A1c% 7.9 % (4.27-6.07)
== END 2023-05-14 14:21 | disposition home or self-care (01) ==
LOC: LAB 14:20
PROVIDERS: ATTEND Registered Nurse
DX: E11.8 Type 2 diabetes mellitus with unspecified complications (principal); E78.5 Hyperlipidemia, unspecified
CPT/HCPCS: 36415; 80048; 80061; 82043; 82570; 83036; 83721